=== PATIENT | male | born 1975 | race Caucasian/White ===

== ENCOUNTER 2020-09-23 16:48 | Emergency (ER) | payer OTHER, SELFPAY ==
[2020-09-23 17:10] VITALS: BP 181/101; PULSE 94; RESP 18; TEMP 36.2; O2SAT 98
[2020-09-23] MEDS: CYCLOBENZAPRINE 10 MG TABLET PO (17:30)
[2020-09-23] MEDS: ONDANSETRON 4 MG ODT SL (17:30)
[2020-09-23] MEDS: KETOROLAC 60 MG/2 ML VIAL 30 MG IM (17:31)
--- NOTE | 2020-09-23 18:28 | ED.HA ---
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 Patient reports he had similar headaches before and denies stroke-like symptoms such as vision change, speech difficulty, dysphagia, dysphagia, balance problem, facial droops, weakness to 1 side of body. Patient requests IM Toradol injection which helped headache in the past. Patient had taken [place], Ibuprofen last at 1330 today without much improvement. Patient denies fever, chills, vomiting and reports some nausea. Patient denies tingling, numbness or weakness to upper extremities. Related Data Allergies Allergy/AdvReac Type Severity Reaction Status Date / Time No Known Allergies Allergy Verified 09/23/20 17:31 Review of Systems <GAGE Waters - Last Filed: 09/24/20 01:11> Review of Systems Narrative: General: Denies fever, chills, fatigue, malaise, sweats. HEENT: Denies sinus pain, ear pain, sore throat, difficulty swallowing, dizziness. Respiratory: Denies dyspnea, cough, wheezing, hemoptysis, sputum. Cardiovascular: Denies chest pain, palpitations, orthopnea, edema. Gastrointestinal: Denies (+) nausea, vomiting, abdominal pain, diarrhea, constipation, melena. : Denies dysuria, frequency, incontinence, hematuria, urinary retention. Musculoskeletal: See HPI Skin: Denies rash, skin lesions, or other. Neurologic: Denies weakness, headache, numbness, change in speech, confusion, seizures, incoordination. Psychiatric: No concerning psychosocial issues. 12-point review of systems is negative except for those stated above. Patient History <GAGE Waters - Last Filed: 09/24/20 01:11> Medical History Cervical nerve root impingement (Acute) Hypertension (Acute) Thoracic outlet syndrome (Acute) Surgical History History of lateral meniscus repair of left knee (Acute) History of lateral meniscus repair of right knee (Acute) Social History Smoking Status: Never smoker Smoking Status: Never smoker Exam <GAGE Waters - Last Filed: 09/24/20 01:11> Narrative Exam Narrative: GEN: Alert, oriented x 3, well appearing and nourished, and in no acute distress. Head: Normal cephalic, atraumatic. No scalp or temporal tenderness, palpable mass or rash. EYES: Pupils are equal, round, and reactive to light and accommodation. Extraocular muscles are intact bilaterally. There is no subconjunctival hemorrhage, exudate and sclera non-icteric. ENT: Hearing grossly intact. Airway patent. Neck: Trachea in midline. No JVD, non-tender without lymphadenopathy. No masses or thyroid megaly. Supple and no meningeal signs. Posterior para cervical spine tenderness. No step offs. No rash. CARDIAC: Normal regular rate and rhythm without murmurs, gallops, or rubs. No chest wall tenderness. No peripheral edema, cyanosis or pallor. Capillary refill is less than 2 seconds. No carotid bruits. RESPIRATORY: Lungs are cleat to auscultate bilaterally. No cough, wheezes, rales, or rhonchi. No stridor, respiratory distress, increase work of breathing, or accessary muscle used. ABD: Abdomen soft, nontender and non-distended. No guarding or rebound tenderness to palpate. Bowel sounds are normal in all 4 quadrants. There is no palpable masses or organomegaly. EXT: Full painless ROM of all extremities with no loss of sensation, strength, effusion or edema. SKIN: Warm, dry, normal color for patient. No erythema, lesions or rash. BACK: Nontender without deformity or crepitance. No flank tenderness. NEUROLOGICAL: Alert and oriented to place, time and person. No facial droops, dysphasia. CN II-XII intact. Strength and sensation symmetric and intact throughout. Cerebellar testing normal. PSYCHIATRIC: Good judgement and reason, without hallucinations, abnormal affect or abnormal behaviors during the examination. Patient is not suicidal. Initial Vital Signs Initial Vital Signs: Vital Signs Temperature 97.1 F L 09/23/20 17:10 Pulse Rate 94 H 09/23/20 17:10 Respiratory Rate 18 09/23/20 17:10 Blood Pressure 181/101 H 09/23/20 17:10 Pulse Oximetry 98 09/23/20 17:10 <Emely Castañeda DO - Last Filed: 09/27/20 07:58> Initial Vital Signs Initial Vital Signs: Vital Signs Temperature 97.1 F L 09/23/20 17:10 Pulse Rate 94 H 09/23/20 17:10 Respiratory Rate 18 09/23/20 17:10 Blood Pressure 181/101 H 09/23/20 17:10 Pulse Oximetry 98 09/23/20 17:10 Scores <GAGE Waters - Last Filed: 09/24/20 01:11> GCS [place] coma scale eye opening: Spontaneous [place] coma scale verbal response: Orientated [place] coma scale motor response: Obey commands [place] coma scale total score: 15 qSOFA Altered Mental Status (GCS <15): No Respiratory rate greater than/equal to 22: No Systolic blood pressure less than or equal to 100: No qSOFA Total: 0 0-1 Not High Risk 1-3 High risk Course <GAGE Waters - Last Filed: 09/24/20 01:11> Orders Ordered: Discontinued Medications Cyclobenzaprine HCl (Flexeril) 10 mg PO NOW ONE Stop: 09/23/20 17:24 Last Admin: 09/23/20 17:30 Dose: 10 mg Documented by: SONARTIN Hydromorphone HCl (Dilaudid) 1 mg IM NOW ONE Stop: 09/23/20 18:16 Last Admin: 09/23/20 18:40 Dose: 1 mg Documented by: SONARTIN Ketorolac Tromethamine (Toradol) 30 mg IM NOW ONE Stop: 09/23/20 17:24 Last Admin: 09/23/20 17:31 Dose: 30 mg Documented by: SONARTIN Ondansetron HCl (Zofran Odt) 4 mg SL NOW ONE Stop: 09/23/20 17:24 Last Admin: 09/23/20 17:30 Dose: 4 mg Documented by: HOLLEY Reevaluation(s) Reevaluation #1: Patient reports no improvement after Toradol IM injection and Flexeril PO medication. Dilaudid 1mg IM ordered. Time: 18:15 Vital Signs Vital signs: Vital Signs - 8 hr 09/23/20 17:10 09/23/20 19:45 Temperature 97.1 F L Pulse Rate 94 H 73 Respiratory Rate 18 16 Blood Pressure 181/101 H 145/87 H Pulse Oximetry 98 96 <Emely Castañeda DO - Last Filed: 09/27/20 07:58> Orders Ordered: Discontinued Medications Cyclobenzaprine HCl (Flexeril) 10 mg PO NOW ONE Stop: 09/23/20 17:24 Last Admin: 09/23/20 17:30 Dose: 10 mg Documented by: RMARTIN Hydromorphone HCl (Dilaudid) 1 mg IM NOW ONE Stop: 09/23/20 18:16 Last Admin: 09/23/20 18:40 Dose: 1 mg Documented by: RMARTIN Ketorolac Tromethamine (Toradol) 30 mg IM NOW ONE Stop: 09/23/20 17:24 Last Admin: 09/23/20 17:31 Dose: 30 mg Documented by: RMARTIN Ondansetron HCl (Zofran Odt) 4 mg SL NOW ONE Stop: 09/23/20 17:24 Last Admin: 09/23/20 17:30 Dose: 4 mg Documented by: RMRODNEYIN Vital Signs Vital signs: Vital Signs - 8 hr 09/23/20 17:10 09/23/20 19:45 Temperature 97.1 F L Pulse Rate 94 H 73 Respiratory Rate 18 16 Blood Pressure 181/101 H 145/87 H Pulse Oximetry 98 96 [facility] - Headache <GAGE Waters - Last Filed: 09/24/20 01:11> Differential Diagnosis Differential diagnosis: Likely migraine, tension headache and headache Medical Records Attestation: I reviewed the patient's medical records. [facility] Narrative Medical decision making narrative: This is a 45-year-old male, who has history of thoracic outlet syndrome and cervical spine impingement with smiliar headaches in the past presents to ED with posterior headache. NIHSS score is 0. Patient has bilateral strength and sensation in upper extremities. Given patient had similar pain without neurological deficit, imaging test was deferred. Initially patient was medicated with Zofran ODT, Toradol IM, and flexeril PO without much relief on headache. Patient was medicated with 1mg Dialudid IM injection with good efficacy. Patient advised to continue with his current medication regimen and return precautions were discussed with patient and he and spouse verbalized understanding. Discharge Plan Departure Patient Disposition: Home Clinical Impression: Headache Qualifiers: Headache type: unspecified Headache chronicity pattern: unspecified pattern Intractability: not intractable Qualified Code(s): R51.9 - Headache, unspecified Discharge Date/Time: 09/23/20 19:56 Instructions: DI for Headache Activity Restrictions/Additional Instructions: You have been diagnosed with [acute on chronic headache. You were treated with Flexeril, Toradol IM injection, and Dilaudid IM injection]. What to do: *Take your medications as directed. *Follow up with your primary care provider in 2-3 days, call for an appointment. Let them know you were seen in the ED and that we asked you to be seen in follow up. *Return to ED if you have any new, worsening, or concerning symptoms, such as [facial droops, weakness to extremities, speech difficulty, vision change, balance problem, vomiting, fever, or any acute concerns]. <Emely Castañeda DO - Last Filed: 09/27/20 07:58> Cosign ED Attending Cosignature Attestation: I was immediately available in the department for consultation. This documentation has been reviewed and I agree with assessment and plan. Supervised by Emely Castañeda DO
[2020-09-23] MEDS: HYDROMORPHONE 1 MG INJ IM (18:40)
[2020-09-23 19:45] VITALS: BP 145/87; PULSE 73; RESP 16; O2SAT 96
== END 2020-09-23 19:56 | disposition home or self-care (01) ==
PROVIDERS: Emergency Provider Nurse Practitioner Family
DX: R51.9 Headache, unspecified (principal); I10 Essential (primary) hypertension
CPT/HCPCS: 96372; 99283; J1170; J1885

== ENCOUNTER 2021-03-01 16:14 | Emergency (ER) | payer OTHER, MEDICAID, SELFPAY ==
[2021-03-01 16:15] VITALS: BP 152/96; PULSE 60; RESP 16; TEMP 36.2; O2SAT 100; BMI 38.0
--- NOTE | 2021-03-01 16:31 | ED.GENADULT ---
HPI - General Adult General Chief complaint: Headache Stated complaint: states massive headache Time Seen by Provider: 03/01/21 16:16 Source: patient Mode of arrival: Ambulatory Limitations: no limitations History of Present Illness HPI narrative: Patient is a 45-year-old male who has had neck pain and headaches in the past. He states that it stems from a diagnosis of thoracic outlet syndrome and also cervical spinal stenosis. He was last seen here in the emergency department in August in receive medications any states that since that time he has had only minor headaches. Yesterday he was under his truck yesterday with his head flexed forward and he started to have a headache after that and has continued until today. He did take oxycodone and also ibuprofen without any improvement. He states this feels just like his prior headaches. Related Data Allergies Allergy/AdvReac Type Severity Reaction Status Date / Time No Known Allergies Allergy Verified 09/23/20 17:31 Review of Systems Constitutional Constitutional: Reports headache(s) ENT Ears, Nose, Mouth, and Throat: Reports headache(s) and Reports neck pain Cardiovascular Cardiovascular: Denies chest pain and Denies dyspnea Respiratory Respiratory: Denies dyspnea Musculoskeletal Musculoskeletal: Reports neck pain Integumentary/Breasts Skin/Breast: Denies rash Neurologic Neurologic: Denies behavioral changes and Reports headache(s) Psychiatric Psychiatric: Denies behavioral changes Hematologic/Lymphatic On Anticoagulants: No Patient History Medical History Cervical nerve root impingement Hypertension Thoracic outlet syndrome Surgical History History of lateral meniscus repair of left knee History of lateral meniscus repair of right knee Social History Smoking Status: Never smoker Smoking Status: Never smoker alcohol intake frequency: 0-2 drinks per day Substance Use Type: does not use Exam Initial Vital Signs Initial Vital Signs: Vital Signs Temperature 97.1 F L 03/01/21 16:15 Pulse Rate 60 03/01/21 16:15 Respiratory Rate 16 03/01/21 16:15 Blood Pressure 152/96 H 03/01/21 16:15 Pulse Oximetry 100 03/01/21 16:15 Const General: cooperative and comfortable Limitations: mental status not altered HENMT Head: normal to inspection and normocephalic Resp Effort & Inspection: normal respiratory effort Auscultation: clear to auscultation bilaterally Cardio Rate: regular rate Rhythm: regular rhythm Back/Spine/Pelvis Thoracic/Lumbar Spine: paraspinal tenderness (Cervical spine) Skin Lesions: no lesions Rashes: no rashes Neuro General: patient alert, patient awake and patient oriented x3 Extrem General: capillary refill normal Psych Appearance: well kempt Course Orders Ordered: Discontinued Medications Cyclobenzaprine HCl (Cyclobenzaprine 10 Mg Tablet) 10 mg PO NOW ONE Stop: 03/01/21 18:20 Last Admin: 03/01/21 18:49 Dose: 10 mg Documented by: NATI Hydromorphone HCl (Hydromorphone 1 Mg Inj) 1 mg IV NOW ONE Stop: 03/01/21 17:37 Last Admin: 03/01/21 17:52 Dose: 1 mg Documented by: NATI Ketorolac Tromethamine (Ketorolac 60 Mg/2 Ml Vial) 30 mg IM NOW ONE Stop: 03/01/21 16:32 Ketorolac Tromethamine (Ketorolac 60 Mg/2 Ml Vial) 30 mg IV NOW ONE Stop: 03/01/21 16:58 Last Admin: 03/01/21 17:00 Dose: 30 mg Documented by: JOSE Ondansetron HCl (Ondansetron 4 Mg/2 Ml Inj) 4 mg IV NOW ONE Stop: 03/01/21 18:51 Last Admin: 03/01/21 18:52 Dose: 4 mg Documented by: NATI Vital Signs Vital signs: Vital Signs - 8 hr 03/01/21 16:15 Temperature 97.1 F L Pulse Rate 60 Respiratory Rate 16 Blood Pressure 152/96 H Pulse Oximetry 100 Medical Decision Making MDM Narrative Medical decision making narrative: He does have a history of headaches and this feels like 1 of his normal headaches and I suspect is muscular in origin. No improvement with the Toradol. Minimal improvement with the Dilaudid. Was given Flexeril. Care turned over to Dr. Castañeda to follow-up and disposition.
[2021-03-01] MEDS: KETOROLAC 60 MG/2 ML VIAL 30 MG IV (17:00)
[2021-03-01] MEDS: HYDROMORPHONE 1 MG INJ IV (17:52)
[2021-03-01] MEDS: CYCLOBENZAPRINE 10 MG TABLET PO (18:49)
[2021-03-01] MEDS: ONDANSETRON 4 MG/2 ML INJ IV (18:52)
[2021-03-01 20:09] VITALS: BP 158/98; PULSE 58; RESP 14; O2SAT 97
== END 2021-03-01 20:11 | disposition home or self-care (01) ==
PROVIDERS: Emergency Provider Emergency Medicine
DX: R51.9 Headache, unspecified (principal); M54.2 Cervicalgia
CPT/HCPCS: 96374; 96375; 99284; J1170; J1885; J2405

== ENCOUNTER 2021-07-03 07:11 | Emergency (ER) | payer OTHER, SELFPAY ==
[2021-07-03 07:24] VITALS: BP 144/106; PULSE 68; RESP 16; TEMP 35.7; O2SAT 98; BMI 38.0
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
[2021-07-03] MEDS: CYCLOBENZAPRINE 10 MG TABLET PO (08:00)
[2021-07-03] MEDS: KETOROLAC 30 MG/ML VIAL IM (08:00)
[2021-07-03 08:24] VITALS: BP 140/98; PULSE 67; RESP 18; TEMP 37.2; O2SAT 98
== END 2021-07-03 08:26 | disposition home or self-care (01) ==
PROVIDERS: Emergency Provider Emergency Medicine
DX: M25.552 Pain in left hip (principal)
CPT/HCPCS: 96372; 99283; J1885

== ENCOUNTER 2021-09-02 03:49 | Emergency (ER) | payer OTHER, SELFPAY ==
[2021-09-02 03:56] VITALS: BP 140/89; PULSE 77; RESP 18; TEMP 36.4; O2SAT 99; BMI 36.9
--- NOTE | 2021-09-02 03:59 | ED.GENADULT ---
HPI - General Adult General Stated complaint: back,l hip neck r shoulder pain previous injury Time Seen by Provider: 09/02/21 03:52 Source: patient Mode of arrival: Ambulatory History of Present Illness HPI narrative: Patient is a 46-year-old male. Is under a pain contract with the [facility] for chronic pain secondary to an injury that happened years ago. He has run out of his pain medication. Apparently there was an issue with the pharmacy in refilling it. He normally takes Vicodin. Also ibuprofen. Here because he cannot sleep being off of his pain medication. Reports pain in his neck and head in hips and right shoulder and back Related Data Allergies Allergy/AdvReac Type Severity Reaction Status Date / Time No Known Allergies Allergy Verified 07/03/21 07:27 Review of Systems Musculoskeletal Musculoskeletal: Reports system reviewed and no additional complaints, except as documented Neurologic Neurologic: Reports system reviewed and no additional complaints, except as documented Hematologic/Lymphatic On Anticoagulants: No Patient History Medical History (Updated 09/02/21 @ 04:02 by Renan Henry DO) Cervical nerve root impingement Hypertension Thoracic outlet syndrome Surgical History History of lateral meniscus repair of left knee History of lateral meniscus repair of right knee Social History Smoking Status: Never smoker Smoking Status: Never smoker alcohol intake frequency: 0-2 drinks per day Substance Use Type: does not use Exam HENMT Head: normal to inspection and normocephalic Resp Effort & Inspection: normal respiratory effort Cardio Rate: regular rate Neuro General: patient alert, patient awake and patient oriented x3 Extrem General: normal to inspection Medical Decision Making MDM Narrative Medical decision making narrative: Patient is here with his chronic pain. He received 1 dose of pain medicine here in the emergency department. I will not refill any opioid pain medication. This will need to come from his sign painter. No indication for radiologic studies. Discharge Plan Departure Patient Disposition: Home Clinical Impression: Chronic pain Activity Restrictions/Additional Instructions: Further pain management will need to come from your sign painter or your primary doctor. Unfortunately the emergency department will not refill any chronic pain medication. Please keep all of your scheduled medical appointments. Return to the emergency department for any new or worsening symptoms.
[2021-09-02] MEDS: HYDROCODONE/ACET 5/325 TABLET 2 TAB PO (04:02)
== END 2021-09-02 04:04 | disposition home or self-care (01) ==
PROVIDERS: Emergency Provider Emergency Medicine
DX: G89.29 Other chronic pain (principal)
CPT/HCPCS: 99283

== ENCOUNTER 2021-10-31 09:46 | Emergency (ER) | payer OTHER, MEDICAID, SELFPAY ==
[2021-10-31] VITALS (12 sets, daily range): BP systolic 131–147; BP diastolic 63–97; PULSE 60–81; RESP 15–18; TEMP 36.2; O2SAT 93–97; BMI 36.9
[2021-10-31] MEDS: ONDANSETRON 4 MG ODT SL (11:09)
--- NOTE | 2021-10-31 11:52 | ED.HA ---
HPI - Headache General Chief Complaint: Headache Stated Complaint: Massive headache x7 days. Has prior neck injury Time Seen by Provider: 10/31/21 11:52 Source: patient and old records reviewed Mode of arrival: Ambulatory Limitations: no limitations History of Present Illness HPI Narrative: This is 45-year-old male who has a history of neck pain and headaches. Patient states he has had headache for the past 7 days. He has some quite frequently in persistently but this 1 he has not been able to control at home with hydrocodone or oxycodone. He has a prior injury with being struck by a 500 lb steel door in the past. He has a diagnosis of thoracic outlet syndrome and cervical spinal stenosis. He is following regularly for these. He states that this is his typical type headache. There is no changes to his pattern. He has not had any other new changes such as fevers, no cold cough or congestion. No chest pain or shortness of breath. He has had some nausea but no vomiting. Does not typically at photophobia with his headaches and has none today. He does not have any new numbness, tingling weakness or difficulty with movement of his extremities. Patient states he typically response to Toradol and a muscle relaxer and if that is not helpful sometimes shot of Dilaudid as well. He is accompanied by his today. No known drug allergies. Related Data Allergies Allergy/AdvReac Type Severity Reaction Status Date / Time No Known Allergies Allergy Verified 10/31/21 09:58 Review of Systems Review of Systems ROS Unobtainable: All systems reviewed & are unremarkable except as noted in HPI and below Patient History Medical History (Updated 10/31/21 @ 12:05 by Emely Castañeda DO) Cervical nerve root impingement Hypertension Thoracic outlet syndrome Surgical History History of lateral meniscus repair of left knee History of lateral meniscus repair of right knee Social History Smoking Status: Never smoker Smoking Status: Never smoker alcohol intake frequency: holidays/special occasions only Substance Use Type: does not use Exam Narrative Exam Narrative: GEN: well nourished, well appearing female, alert and oriented x 3, patient appears to be in mild distress. HEENT: Atraumatic, pupils are equal round reactive to light, extraocular movements are intact, nares are clear, TMs are clear with no fluid, there is no conjunctival pallor. Throat is clear without any exudates, erythema, tonsillar enlargement or uvular deviation, no facial droop. HEART: Regular rate and rhythm without murmur, clicks, rubs. Pulses are equal in upper extremities LUNGS:Lungs clear to auscultation, no wheezes, rales, crackles, chest moves symmetrically ABD:bowel sounds normal, soft, non-tender, no guarding, rebound, rigidity, no masses noted, no hepatosplenomegaly :No CVA tenderness MSCL: Non-tender, no muscle atrophy, muscles strength 5/5 upper and lower extremities, full range of motion, normal gait NEURO:CN 2-12 intact, sensation normal. SKIN: No rash, erythema or other skin changes noted. Initial Vital Signs Initial Vital Signs: Vital Signs Temperature 97.2 F L 10/31/21 09:55 Pulse Rate 77 10/31/21 09:55 Respiratory Rate 15 10/31/21 09:55 Blood Pressure 137/97 H 10/31/21 09:55 Pulse Oximetry 97 10/31/21 09:55 Course Orders Ordered: Discontinued Medications Cyclobenzaprine HCl (Cyclobenzaprine 10 Mg Tablet) 10 mg PO NOW ONE Stop: 10/31/21 11:59 Last Admin: 10/31/21 12:12 Dose: 10 mg Documented by: NAIMA Hydromorphone HCl (Hydromorphone 1 Mg Inj) 1 mg IM NOW ONE Stop: 10/31/21 13:20 Last Admin: 10/31/21 13:29 Dose: 1 mg Documented by: LUPILLO Ketorolac Tromethamine (Ketorolac 30 Mg/Ml Vial) 30 mg IM NOW ONE Stop: 10/31/21 11:59 Last Admin: 10/31/21 12:12 Dose: 30 mg Documented by: NAIMA Ondansetron HCl (Ondansetron 4 Mg Odt) 4 mg SL NOW ONE Stop: 10/31/21 11:06 Last Admin: 10/31/21 11:09 Dose: 4 mg Documented by: NAIMA Vital Signs Vital signs: Vital Signs - 8 hr 10/31/21 12:00 10/31/21 12:14 10/31/21 12:30 Pulse Rate 68 71 66 Respiratory Rate 18 18 Blood Pressure 131/89 Pulse Oximetry 96 96 93 10/31/21 13:00 10/31/21 13:30 10/31/21 13:31 Pulse Rate 70 60 71 Respiratory Rate Blood Pressure 146/80 H 135/73 Pulse Oximetry 93 93 94 10/31/21 14:00 10/31/21 14:30 Pulse Rate 73 81 Respiratory Rate 18 Blood Pressure 147/82 H 147/63 H Pulse Oximetry 93 95 MDM - Headache MDM Narrative Medical decision making narrative: This is a 46-year-old male comes emergency department with complaint headaches similar to his typical headache but has been persistent unable to resolve it at home with his usual remedies he has been seen here before but it has been quite sometime since this most recent issue. Patient feels better after medications which are a typical been here in the department to discharge home. Discharge Plan Departure Patient Disposition: Home Clinical Impression: Headache Instructions: DI for Headache Activity Restrictions/Additional Instructions: Follow-up with your physician. You may be able to talk to pain management or a headache clinic and this may be helpful to you although it sounds like you are following appropriate channels in terms of her neck and back issues. Please return for severe headaches, fevers, new numbness, tingling weakness, persistent vomiting, changes in her headache pattern or other new or concerning symptoms. Referrals: Jigar Collazo DO [Physician] - Elijah White MD [Non-Staff] -
[2021-10-31] MEDS: CYCLOBENZAPRINE 10 MG TABLET PO (12:12)
[2021-10-31] MEDS: KETOROLAC 30 MG/ML VIAL IM (12:12)
[2021-10-31] MEDS: HYDROMORPHONE 1 MG INJ IM (13:29)
== END 2021-10-31 14:40 | disposition home or self-care (01) ==
PROVIDERS: Emergency Provider Emergency Medicine
DX: R51.9 Headache, unspecified (principal)
CPT/HCPCS: 96372; 99283; J1170; J1885

== ENCOUNTER 2025-05-29 19:52 | Emergency (ER) | payer OTHER, SELFPAY ==
[2025-05-29 19:59] VITALS: BP 151/89; PULSE 82; RESP 18; TEMP 36.4; O2SAT 99; BMI 38.4
--- NOTE | 2025-05-29 21:46 | ED.ANIMALBIT ---
HPI - Animal Bite General Chief Complaint: Animal Bite Stated Complaint: Dog bite Time Seen by Provider: 05/29/25 19:58 Source: patient Mode of arrival: Ambulatory History of Present Illness HPI narrative: 50-year-old gentleman presents with right hand dog bite unprovoked while attempting to protect his child from the dog. Dog is now quarantine under police custody for which they have no information on dog's vaccination status. Patient unsure when last tetanus shot is. Other than what is stated 14 point review of system is negative. Related Data Previous Rx's ?Medication ?Instructions ?Recorded amoxicillin 875 mg-potassium 1 tab PO BID #14 tabs 05/29/25 clavulanate 125 mg tablet Allergies Allergy/AdvReac Type Severity Reaction Status Date / Time No Known Allergies Allergy Verified 05/29/25 19:59 Review of Systems Review of Systems ROS Unobtainable: All systems reviewed & are unremarkable except as noted in HPI and below Patient History Medical History (Updated 05/29/25 @ 21:49 by Rodrigo Garcia DO) Cervical nerve root impingement Thoracic outlet syndrome Hypertension Surgical History History of lateral meniscus repair of right knee History of lateral meniscus repair of left knee alcohol intake frequency: holidays/special occasions only Exam Narrative Exam Narrative: GENERAL: [50] year old patient appears stated age. Well-developed patient, in mild distress. HEAD: Atraumatic. Normocephalic. EYES: Pupils equal round and reactive. Extraocular motions intact. No scleral icterus. No injection or drainage. NECK: Trachea midline. Non tender EXTREMITIES: No edema or joint tenderness. Right hand specifically thenar eminence and dorsum of hand specifically the interdigital web spaces between the thumb and index finger showing dog bite viera, motor sensory intact +2 radial pulse full range of motion of all digits of all fingers and thumb with no difficulty. No active bleeding or purulent drainage BACK: Nontender without deformity or crepitance. No flank tenderness. NEURO: AOx3. SKIN: No rash or erythema of visible areas Initial Vital Signs Initial Vital Signs: Vital Signs Temperature 97.5 F L 05/29/25 19:59 Pulse Rate 82 05/29/25 19:59 Respiratory Rate 18 05/29/25 19:59 Blood Pressure 151/89 H 05/29/25 19:59 Pulse Oximetry 99 05/29/25 19:59 Oxygen Delivery Method Room Air 05/29/25 19:59 Course Vital Signs Vital signs: Vital Signs - 8 hr 05/29/25 19:59 Temperature 97.5 F L Pulse Rate 82 Respiratory Rate 18 Blood Pressure 151/89 H Pulse Oximetry 99 Oxygen Delivery Method Room Air MDM - Animal Bite MDM Narrative Medical decision making narrative: Vital signs nurse triage note medication list previous ER visits in all imaging study reviewed. Patient given tetanus and Augmentin here. We will be discharged on Augmentin. Dog is quarantine at this time. Differential diagnosis includes cellulitis tetanus and rabies. Return with new or worsening symptoms Discharge Plan Departure Patient Disposition: Home Clinical Impression: Dog bite Instructions: DI for Dog Bite Activity Restrictions/Additional Instructions: Return with new or worsening symptoms. Take your medicines as directed. Follow up PCP in 1-2 weeks if no improvement in symptoms. Prescriptions: New amoxicillin-pot clavulanate 875-125 mg tablet 1 tab PO BID Qty: 14 0RF Stand Alone Forms: Patient Portal/API
[2025-05-29] MEDS: AMOXICILLIN/CLAV 875/125 MG 1 TAB PO (21:51)
[2025-05-29] MEDS: TET,DIPH,PERTUSS(ACELL),VAC/PF 0.5 ML SYRINGE IM (21:51)
== END 2025-05-29 22:00 | disposition home or self-care (01) ==
PROVIDERS: Emergency Provider Family Medicine
DX: S61.451A Open bite of right hand, initial encounter (principal); W54.0XXA Bitten by dog, initial encounter; Z23 Encounter for immunization
CPT/HCPCS: 90471; 99283; 99284; 90715